=== PATIENT | male | born 1995 | race Caucasian/White ===

== ENCOUNTER 2019-01-17 18:45 | Emergency (ER) | payer BC ==
[~2019-01-17] VITALS: Ht 177.8 cm; Wt 90.7 kg
[2019-01-17 19:37] LABS: Source, Urine Clean Catch
[2019-01-17 19:42] LABS: BASOPHILS ABSOLUTE AUTO 0.05 K/mm3 (0.00-0.23); BASOPHILS PERCENT AUTO 1 % (0-2); EOSINOPHILS ABSOLUTE AUTO 0.08 K/mm3 (0.00-0.68); EOSINOPHILS PERCENT AUTO 1 % (0-6); Hematocrit 46.7 % (37.0-53.0); Hemoglobin 16.5 g/dL (13.5-17.5); IMMATURE GRAN ABSOLUTE AUTO 0.09 K/mm3 (0.00-0.10); IMMATURE GRAN PERCENT AUTO 1 % (0-1); LYMPHOCYTES PERCENT AUTO 19 % (21-46); MONOCYTES ABSOLUTE AUTO 0.52 K/mm3 (0.16-1.47); MONOCYTES PERCENT AUTO 6 % (4-13); Mean Corpuscular HGB Conc 35.3 g/dL (31.5-36.5); Mean Corpuscular Volume 88 fL (80-100); Mean Platelet Volume 11.1 fL (9.1-12.4); NEUTROPHILS ABSOLUTE AUTO 6.31 K/mm3 (1.96-9.15); NEUTROPHILS PERCENT AUTO 72 % (41-73); Platelet Count 209 K/mm3 (150-400); RDW Coefficient Variation 11.9 % (11.7-14.2); RDW Standard Deviation 37.6 fL (35.1-46.3); Red Blood Cell Count 5.33 M/mm3 (4.30-5.90); White Blood Cell Count 8.75 K/mm3 (4.00-11.30)
[2019-01-17 20:17] LABS: Bilirubin, Urine Neg (Neg); Blood, Urine 1+ (Neg); Glucose Qualitative, Urine Neg (Neg); Ketones, Urine Neg (Neg); Leukocyte Esterase, Urine Neg (Neg); Nitrite, Urine Neg (Neg); Protein, Urine Neg (Neg); Urobilinogen, Urine NORM (Normal)
[2019-01-17 20:35] LABS: Beta-hydroxybutyrate 2.2 mg/dL (0.2-2.8)
[2019-01-17 20:44] LABS: Appearance, Urine Clear (Clear); Color, Urine Pale Yellow (P-Yellow)
[2019-01-17 20:45] LABS: Bacteria Rare /hpf; Red Blood Cells, Urine 0-2 /hpf (0-2); Squamous Epithelial Cells Rare /hpf (Few); White Blood Cells, Urine Not Seen /hpf (0-5)
[2019-01-17 21:07] LABS: Alanine Aminotransfer (ALT/SGP 45 U/L (12-78); Albumin/Globulin Ratio 1.2 (0.8-1.8); Alk Phos 153 U/L (50-136); Anion Gap 7 mmol/L (6-16); Aspartate Aminotrans (AST/SGOT 16 U/L (12-37); Bilirubin, Total 0.3 mg/dL (0.1-1.0); Blood Urea Nitrogen 13 mg/dL (8-24); Bun/Creatinine Ratio 13.3 (12.0-20.0); CO2, Blood 27 mmol/L (21-32); Chloride, Blood 93 mmol/L (98-108); Creatinine, Blood 0.98 mg/dL (0.60-1.20); Globulin, Blood 3.3 g/dL (2.2-4.0); Glomerular Filtration Rate >60 (60-); Glucose, Blood 722 mg/dL (70-99); Sodium, Blood 127 mmol/L (136-145); Total Protein, Blood 7.3 g/dL (6.4-8.2)
--- NOTE | 2019-01-18 19:13 | NUR ---
Follow up call to this patient. He did not answer the phone and the mailbox is full, so I tried SO, Isidra. Pt high risk for readmission since he has discharged from the ER with a new, very serious diagnosis of diabetes. diagnosed pt with type 1. He has no PCP. Message left for Isidra to return call to report how pt is doing. Report left for Palliative Nursing to follow up with another call if possible.
== END 2019-01-17 23:20 | disposition home or self-care (01) ==
LOC: ER 18:45
PROVIDERS: Physician Assistant
DX: E11.9 Type 2 diabetes mellitus without complications (principal); R63.4 Abnormal weight loss; F17.200 Nicotine dependence, unspecified, uncomplicated; Z68.29 Body mass index [BMI] 29.0-29.9, adult
CPT/HCPCS: 36415; 71046; 80053; 81001; 82010; 82947; 85025; 93005; 93010; 96360; 96361; 99285-25; J1815; J7030

== ENCOUNTER 2021-05-16 17:51 | Observation (INO) | payer BC ==
[~2021-05-16] VITALS: Ht 177.8 cm; Wt 77.1 kg
[2021-05-16 18:26] LABS: BASOPHILS ABSOLUTE AUTO 0.27 K/mm3 (0.00-0.23); BASOPHILS PERCENT AUTO 1 % (0-2); EOSINOPHILS ABSOLUTE AUTO 0.01 K/mm3 (0.00-0.68); EOSINOPHILS PERCENT AUTO 0 % (0-6); Hematocrit 53.5 % (37.0-53.0); Hemoglobin 17.4 g/dL (13.5-17.5); IMMATURE GRAN ABSOLUTE AUTO 1.05 K/mm3 (0.00-0.10); IMMATURE GRAN PERCENT AUTO 5 % (0-1); LYMPHOCYTES ABSOLUTE AUTO 1.48 K/mm3 (0.84-5.20); LYMPHOCYTES PERCENT AUTO 7 % (21-46); MONOCYTES ABSOLUTE AUTO 0.77 K/mm3 (0.16-1.47); MONOCYTES PERCENT AUTO 4 % (4-13); Mean Corpuscular HGB 31.6 pg (26.0-34.0); Mean Corpuscular HGB Conc 32.5 g/dL (31.5-36.5); Mean Corpuscular Volume 97 fL (80-100); Mean Platelet Volume 10.8 fL (9.1-12.4); NEUTROPHILS ABSOLUTE AUTO 18.12 K/mm3 (1.96-9.15); NEUTROPHILS PERCENT AUTO 84 % (41-73); Platelet Count 233 K/mm3 (150-400); RDW Coefficient Variation 12.4 % (11.7-14.2); RDW Standard Deviation 44.5 fL (35.1-46.3)
[2021-05-16 18:48] LABS: Anion Gap 30 mmol/L (6-16); Blood Urea Nitrogen 20 mg/dL (8-24); Bun/Creatinine Ratio 18.5 (12.0-20.0); CO2, Blood 5 mmol/L (21-32); Calcium, Blood 8.2 mg/dL (8.5-10.1); Chloride, Blood 98 mmol/L (98-108); Creatinine, Blood 1.08 mg/dL (0.60-1.20); Glomerular Filtration Rate >60 (60-); Glucose, Blood 515 mg/dL (70-99); Potassium, Blood 5.9 mmol/L (3.5-5.5); Sodium, Blood 133 mmol/L (136-145)
[2021-05-16] MEDS ORDERED: INSULIN LI100 UNIT/6 SQ (19:00)
[2021-05-16] MEDS ORDERED: BASAGLAR K100 UNIT/3 SC (19:00)
[2021-05-16 19:01] LABS: Source, Urine Voided
[2021-05-16] MEDS ORDERED: ADMELOG SO100 UNIT/2 SQ (19:01)
[2021-05-16 19:04] LABS: Appearance, Urine Clear (Clear); Bilirubin, Urine Neg (Neg); Blood, Urine 1+ (Neg); Color, Urine Yellow (P-Yellow); Glucose Qualitative, Urine 4+ (Neg); Ketones, Urine 4+ (Neg); Leukocyte Esterase, Urine Neg (Neg); Nitrite, Urine Neg (Neg); Protein, Urine 3+ (Neg); Specific Gravity, Urine 1.025 (1.003-1.022); Urobilinogen, Urine NORM (Normal)
[2021-05-16 19:14] LABS: Bacteria Few /hpf; Red Blood Cells, Urine 0-2 /hpf (0-2); Squamous Epithelial Cells Rare /hpf (Few); White Blood Cells, Urine Rare /hpf (0-5)
[2021-05-16 19:21] LABS: Base Excess Venous -27.8 mmol/L; Bicarbonate Venous 7.9 mmol/L (24.0-30.0); PCO2 Venous 19.2 mmHg (38-42); PO2 Venous 67.7 mmHg (38-42); pH Blood Venous 6.95 (7.34-7.37)
[2021-05-16 19:35] LABS: Glucose, Blood 482 mg/dL (70-99)
[2021-05-16 20:12] LABS: Alanine Aminotransfer (ALT/SGP 35 U/L (12-78); Albumin, Blood 4.3 g/dL (3.4-5.0); Albumin/Globulin Ratio 1.1 (0.8-1.8); Alk Phos 197 U/L (50-136); Aspartate Aminotrans (AST/SGOT 24 U/L (12-37); Bilirubin, Direct <0.1 mg/dL (0.0-0.3); Bilirubin, Indirect Unable to Calculate mg/dL (0.1-0.7); Bilirubin, Total 0.4 mg/dL (0.1-1.0); Total Protein, Blood 8.3 g/dL (6.4-8.2)
[2021-05-16 23:50] LABS: Anion Gap 20 mmol/L (6-16); Blood Urea Nitrogen 13 mg/dL (8-24); Bun/Creatinine Ratio 17.9 (12.0-20.0); CO2, Blood 8 mmol/L (21-32); Calcium, Blood 7.2 mg/dL (8.5-10.1); Chloride, Blood 106 mmol/L (98-108); Creatinine, Blood 0.73 mg/dL (0.60-1.20); Glomerular Filtration Rate >60 (60-); Glucose, Blood 195 mg/dL (70-99); Potassium, Blood 4.3 mmol/L (3.5-5.5); Sodium, Blood 134 mmol/L (136-145)
[2021-05-17 05:05] LABS: BASOPHILS ABSOLUTE AUTO 0.08 K/mm3 (0.00-0.23); BASOPHILS PERCENT AUTO 1 % (0-2); EOSINOPHILS PERCENT AUTO 0 % (0-6); Hematocrit 44.7 % (37.0-53.0); Hemoglobin 15.7 g/dL (13.5-17.5); IMMATURE GRAN ABSOLUTE AUTO 0.33 K/mm3 (0.00-0.10); IMMATURE GRAN PERCENT AUTO 2 % (0-1); LYMPHOCYTES ABSOLUTE AUTO 1.45 K/mm3 (0.84-5.20); LYMPHOCYTES PERCENT AUTO 10 % (21-46); MONOCYTES ABSOLUTE AUTO 1.03 K/mm3 (0.16-1.47); MONOCYTES PERCENT AUTO 7 % (4-13); Mean Corpuscular HGB 31.7 pg (26.0-34.0); Mean Corpuscular HGB Conc 35.1 g/dL (31.5-36.5); Mean Platelet Volume 10.2 fL (9.1-12.4); NEUTROPHILS PERCENT AUTO 80 % (41-73); Platelet Count 185 K/mm3 (150-400); RDW Coefficient Variation 12.2 % (11.7-14.2); RDW Standard Deviation 40.2 fL (35.1-46.3); Red Blood Cell Count 4.95 M/mm3 (4.30-5.90); White Blood Cell Count 14.29 K/mm3 (4.00-11.30)
[2021-05-17 05:07] LABS: Mean Corpuscular Volume 90 fL (80-100)
[2021-05-17 05:25] LABS: Alanine Aminotransfer (ALT/SGP 24 U/L (12-78); Albumin, Blood 3.6 g/dL (3.4-5.0); Albumin/Globulin Ratio 1.1 (0.8-1.8); Alk Phos 150 U/L (50-136); Anion Gap 13 mmol/L (6-16); Aspartate Aminotrans (AST/SGOT 15 U/L (12-37); Bilirubin, Total 0.7 mg/dL (0.1-1.0); Blood Urea Nitrogen 8 mg/dL (8-24); Bun/Creatinine Ratio 13.3 (12.0-20.0); CO2, Blood 16 mmol/L (21-32); Calcium, Blood 7.7 mg/dL (8.5-10.1); Chloride, Blood 106 mmol/L (98-108); Globulin, Blood 3.2 g/dL (2.2-4.0); Glomerular Filtration Rate >60 (60-); Glucose, Blood 204 mg/dL (70-99); Potassium, Blood 3.7 mmol/L (3.5-5.5); Sodium, Blood 135 mmol/L (136-145); Total Protein, Blood 6.8 g/dL (6.4-8.2)
--- NOTE | 2021-05-17 09:35 | NUR ---
PT TO ICU 1 FROM ED. TRANSFERRED TO ICU BED INDEPENDENTLY. INSULIN GTT @2 UNITS/HR AND D5 1/2 NS WITH BICARB @ 100 ML/HR. BLOOD SUGAR ON ARRIVAL 194. PT REPORTS THAT HE "WENT CAMPING THIS WEEKEND AND DIDN'T BRING HIS INSULIN". WHEN ASKED ABOUT HIS HOME INSULIN REGIMENT AND CHECKING BLOOD SUGAR PT STATES HE "DOESN'T TAKE THE LONG ACTING AT NIGHT AND WILL CHECK HIS BLOOD SUGAR AFTER EATING AND THEN TAKE INSULIN". PT DENIES NAUSEA/VOMITING OR PAIN AT THIS TIME. VSS. SEE ADMISSION ASSESSMENT.
[2021-05-17 10:19] LABS: Anion Gap 12 mmol/L (6-16); Blood Urea Nitrogen 8 mg/dL (8-24); Bun/Creatinine Ratio 14.4 (12.0-20.0); CO2, Blood 20 mmol/L (21-32); Calcium, Blood 8.4 mg/dL (8.5-10.1); Chloride, Blood 105 mmol/L (98-108); Creatinine, Blood 0.56 mg/dL (0.60-1.20); Glomerular Filtration Rate >60 (60-); Glucose, Blood 197 mg/dL (70-99); Potassium, Blood 3.4 mmol/L (3.5-5.5); Sodium, Blood 137 mmol/L (136-145)
--- NOTE | 2021-05-17 12:33 | NUR ---
PT GIVEN SEMGLEE 10 UNITS AND 4 UNITS HUMALOG, INSULIN GTT AND D5 1/2NS TURNED OFF. PT SITTING UP IN BED EATING LUNCH. PT EXPRESSES WISH TO GO HOME SOON POSSIBLE D/T HAVING TO WORK TOMORROW. PT'S MOTHER AND SIGNIFICANT OTHER UPDATED ON PT'S STATUS AND PLAN OF CARE.
[2021-05-17] MEDS ORDERED: INSULANI (15:23)
[2021-05-17] MEDS ORDERED: HUMALOG KW100 UNIT/1 SC (15:25)
--- NOTE | 2021-05-17 15:51 | NUR ---
PT DISCHARGED HOME WITH SIGNIFICANT OTHER. REVIEWED REFERRAL TO [facility] HELPER DR. LAYNE, OFFICE CLOSED D/T HOLIDAY. HIGHLIGHTED DR. LAYNE'S CONTACT INFORMATION, PT TO CALL TOMORROW TO SCHEDULE APPT. SEMGLEE AND [facility] PRESCRIPTIONS CALLED INTO [facility], MESSAGE LEFT D/T HOLIDAY. PT AND SIGNIFICANT OTHER ENCOURAGED TO CALL ICU TOMORROW IF THEY ARE UNABLE TO VP RESPIRATORY PRESCRIPTIONS SO THAT WE CAN FAX INFORMATION OVER NEEDED. PT STATES THAT HE HAS "MORE THAN ENOUGH INSULIN" TO GET HIM THROUGH UNTIL TOMORROW. REVIEWED DKA AND CARB COUNTING EDUCATION. IV'S REMOVED AND PT WALKED INDEPENDENTLY OUT OF UNIT WITH SIGNIFICANT OTHER.
[2021-06-08] MEDS ORDERED: INSULANPEN SC (11:35)
[2021-06-08] MEDS ORDERED: FAMO20 PO (11:36)
[2021-06-08] MEDS ORDERED: Acetaminophen325 M1 PO (11:36)
[2021-06-08] MEDS ORDERED: ONDA4ODT MM (11:37)
[2021-06-08] MEDS ORDERED: K-Phos Origina500 MG PO (11:37)
[2021-06-08] MEDS ORDERED: Lisinopril2.5 MG PO (11:37)
== END 2021-05-17 15:50 | disposition home or self-care (01) ==
LOC: ER 17:51 → ERHOLD 20:33 → ICUE 23:31 → ERHOLD 23:31 → ICUE 05-17 07:36
PROVIDERS: Emergency Medicine; ADMIT Internal Medicine
DX: E10.10 Type 1 diabetes mellitus with ketoacidosis without coma (principal); E86.0 Dehydration; F17.210 Nicotine dependence, cigarettes, uncomplicated; F15.11 Other stimulant abuse, in remission; Z91.14 Patient's other noncompliance with medication regimen
CPT/HCPCS: 36415; 74176; 80048; 80053; 80076; 81001; 82010; 82803; 82947; 83690; 85025; 96374; 96375; 99291-25; A9270; G0378; J1815; J1885; J2405; J3010; J7030; J7042; J7070

== ENCOUNTER 2022-01-05 05:42 | Inpatient (IN) | payer OTHER ==
[~2022-01-05] VITALS: Ht 180.3 cm; Wt 70.9 kg
[~2022-01-05 05:42] MED LIST: ADMELOG SO100 UNIT/2 SQ; Acetaminophen325 M1 PO; BASAGLAR K100 UNIT/3 SC; FAMO20 PO; HUMALOG KW100 UNIT/1 SC; INSULANI; INSULANPEN SC; INSULIN LI100 UNIT/6 SQ; K-Phos Origina500 MG PO; Lisinopril2.5 MG PO; ONDA4ODT MM
[2022-01-05 05:55] LABS: Calcium, Ionized (POC) 1.28 mmol/L (1.10-1.46); Chloride (POC) 101 mmol/L (98-108); Creatinine (POC) 1.1 mg/dL (0.8-1.3); Glucose (ISTAT POC) 428 mg/dL (70-99); Hemoglobin (POC) 20.1 g/dL (13.5-17.5); Potassium (POC) 4.8 mmol/L (3.5-5.5); Sodium (POC) 132 mmol/L (135-148); Total CO2 (POC) 8 mmol/L (21-32)
[2022-01-05 06:00] LABS: Hemoglobin 18.7 g/dL (13.5-17.5); Mean Corpuscular HGB 31.6 pg (26.0-34.0); Mean Corpuscular HGB Conc 33.5 g/dL (31.5-36.5); Mean Corpuscular Volume 94 fL (80-100); Mean Platelet Volume 10.4 fL (9.1-12.4); Platelet Count 316 K/mm3 (150-400); RDW Coefficient Variation 11.6 % (11.7-14.2); RDW Standard Deviation 40.3 fL (35.1-46.3); Red Blood Cell Count 5.91 M/mm3 (4.30-5.90); White Blood Cell Count 22.64 K/mm3 (4.00-11.30)
[2022-01-05 06:00] LABS: Base Excess Venous -27.2 mmol/L; Bicarbonate Venous 8.5 mmol/L (24.0-30.0); PCO2 Venous 20.9 mmHg (38-42); PO2 Venous 73.2 mmHg (38-42); pH Blood Venous 6.96 (7.34-7.37)
[2022-01-05 06:03] LABS: Hematocrit 55.8 % (37.0-53.0)
[2022-01-05 06:21] LABS: BAND PERCENT MAN 16 % (0-8); BASOPHILS PERCENT MAN 0 % (0-2); EOSINOPHILS PERCENT MAN 0 % (0-6); LYMPHOCYTES ABSOLUTE MAN 1.13 K/mm3 (0.84-5.20); LYMPHOCYTES PERCENT MAN 5 % (21-46); METAMYELOCYTE ABSOLUTE MAN 0.22 K/mm3 (0.00-0.00); METAMYELOCYTE PERCENT MAN 1 % (0-0); MONOCYTES ABSOLUTE MAN 0.67 K/mm3 (0.16-1.47); MONOCYTES PERCENT MAN 3 % (4-13); SEG NEUTROPHILS PERCENT MAN 75 % (41-73); TOTAL CELLS COUNTED 100
[2022-01-05 06:26] LABS: Alanine Aminotransfer (ALT/SGP 29 U/L (12-78); Albumin, Blood 4.5 g/dL (3.4-5.0); Albumin/Globulin Ratio 1.3 (0.8-1.8); Alk Phos 193 U/L (50-136); Anion Gap 30 mmol/L (6-16); Aspartate Aminotrans (AST/SGOT 24 U/L (12-37); Bilirubin, Total 0.6 mg/dL (0.1-1.0); Blood Urea Nitrogen 20 mg/dL (8-24); Bun/Creatinine Ratio 19.6 (12.0-20.0); CO2, Blood 5 mmol/L (21-32); Calcium, Blood 8.1 mg/dL (8.5-10.1); Chloride, Blood 96 mmol/L (98-108); Creatinine, Blood 1.02 mg/dL (0.60-1.20); Globulin, Blood 3.5 g/dL (2.2-4.0); Glomerular Filtration Rate >60 (60-); Glucose, Blood 434 mg/dL (70-99); Potassium, Blood 4.8 mmol/L (3.5-5.5); Sodium, Blood 131 mmol/L (136-145)
[2022-01-05 06:44] LABS: Source, Urine Clean Catch
[2022-01-05 06:47] LABS: Appearance, Urine Clear (Clear); Bilirubin, Urine Neg (Neg); Blood, Urine 1+ (Neg); Color, Urine Yellow (P-Yellow); Glucose Qualitative, Urine 4+ (Neg); Ketones, Urine 4+ (Neg); Leukocyte Esterase, Urine Neg (Neg); Nitrite, Urine Neg (Neg); Protein, Urine 2+ (Neg); Specific Gravity, Urine 1.025 (1.003-1.022); Urobilinogen, Urine NORM (Normal)
[2022-01-05 07:08] LABS: U Amphetamine Screen Not Detected; U Barbituate Screen Not Detected; U Benzodiazapine Screen Not Detected; U Buprenorphine Screen Not Detected; U Cannabinoids Screen Not Detected; U Cocaine Screen Not Detected; U Methadone Screen Not Detected; U Methamphetamine Screen Not Detected; U Opiates Screen Not Detected; U Oxycodone Screen Not Detected; U Phencyclidine Screen Not Detected; U Propoxyphene Screen Not Detected
[2022-01-05 07:13] LABS: Hyaline Casts 0-2 /lpf (0-2)
[2022-01-05 07:14] LABS: Bacteria Rare /hpf; Red Blood Cells, Urine 0-2 /hpf (0-2); Squamous Epithelial Cells Not Seen /hpf (Few); White Blood Cells, Urine 0-2 /hpf (0-5)
[2022-01-05 08:22] LABS: Potassium, Blood 4.4 mmol/L (3.5-5.5)
--- NOTE | 2022-01-05 11:14 | NUR ---
PT ARRIVAL TO UNIT.... PT ARRIVED ON UNIT VIA GURNEY AND WAS ABLE TO SELF TRANSFER TO THE BED. UPON ARRIVAL THE PT'S INSULIN DRIP WAS SET TO 4 UNITS/HR. HE WAS ALSO ON D5 W/ 1/2 NS RUNNING AT 100MLS/HR. THE PT WAS IN SINUS TACH IN THE LOW 100'S, HIS BP STABLE. THE PT DENIED ANY CHEST PAIN/PRESSURE N/V OR SOB. NO EDEMA NOTED NOTED ON ASSESSMENT. THE PT DENIED ANY NUMBNESS/TINGLING. THE PT'S IS AT THE BEDSIDE. CALL LIGHT IN REACH WILL CONTINUE TO MONITOR.
[2022-01-05 15:35] LABS: Potassium, Blood 4.1 mmol/L (3.5-5.5)
--- NOTE | 2022-01-05 17:33 | NUR ---
SHIFT SUMMARY.... NO ACUTE NEGATIVE CHANGES NOTED THIS SHIFT. THE PT'S VS HAVE BEEN STABLE. THE PT DENIES ANY N/V SINCE ARRIVAL TO THE UNIT. THE PT IS ON AN INUSLIN DRIP AT 2UNITS/HR LAST CBG WAS 166. THE PT IS C/O OF BEING HUNGRY AND AN ADA TRAY WAS ORDERED PER PROVIDER. THE PT'S IS AT THE BEDSIDE MOST OF THIS SHIFT BOTH PT AND HIS WERE UPDATED AND EDUCATED ON HIS CURRENT CONDITON, PLAN OF CARE AND CARE ONCE HE IS D/C'd HOME. BOTH VERBALIZED THEIR UNDERSTANDING. THE PT HAS NOT VOIDED SINCE ARRIVAL TO THE UNIT AND CURRENTLY DENIES THE NEED. CALL LIGHT IN REACH WILL CONTINUE TO MONITOR UNTIL REPORT IS GIVEN TO ONCOMING RN.
[2022-01-05 19:02] LABS: Potassium, Blood 3.5 mmol/L (3.5-5.5)
--- NOTE | 2022-01-05 19:11 | NUR ---
ASSESSMENT/ASSUMED CARE PT SLEEPING, AWAKENS TO VERBAL STIMULI. BLOOD GLUCOSE 339, INCREASED INSULIN GTT TO 4 UNITS/HR WITH D5 1/2 AT 100 ML/HR. PT DENIES PAIN OR DISCOMFORT. MOVING AND TURNING SELF IN BED. TALKED WITH PT ABOUT CO2 AT 15 AND WOULD NEED TO STAY ON INSULIN GTT UNTIL CO2 GREATER THAN 20. PT EXPRESSED UNDERSTANDING. LUNGS CLEAR ON ROOMAIR. RESP EVEN AND NONLABORED. NONPRODUCTIVE COUGH NOTED. HEART RATE SINUS TACH IN THE 100'S. BP STABLE. NO EDEMA. DENIES CHEST PAIN OR PRESSURE. SKIN WARM AND INTACT. BT+ ABD SOFT AND NONTENDER, DENIES N/V. IV 20G TO LEFT AC WITH FLUIDS INFUSING SITE CLEAR. IV 18G TO RIGHT AC SALINE LOCKED, FLUSHED WITHOUT DIFFICULTY. SITE CLEAR. PT UP STANDING AT EDGE OF THE BED TO VOID.
[2022-01-05 23:14] LABS: Potassium, Blood 3.5 mmol/L (3.5-5.5)
--- NOTE | 2022-01-06 00:05 | NUR ---
REASSESSMENT PT SLEEPING, AWAKENS EASILY TO VERBAL STIMULI. BLOOD GLUCOSE DOWN TO 225, CONT INSULIN GTT AT 2 UNITS/HR. HEART RATE DOWN TO 80-90'S. BP STABLE. CO2 AT 2300 UP TO 17. CONT INSULIN GTT. PT BACK TO SLEEP QUICKLY.
[2022-01-06 03:06] LABS: BASOPHILS ABSOLUTE AUTO 0.04 K/mm3 (0.00-0.23); BASOPHILS PERCENT AUTO 1 % (0-2); EOSINOPHILS ABSOLUTE AUTO 0.08 K/mm3 (0.00-0.68); EOSINOPHILS PERCENT AUTO 1 % (0-6); Hematocrit 45.4 % (37.0-53.0); Hemoglobin 16.1 g/dL (13.5-17.5); IMMATURE GRAN ABSOLUTE AUTO 0.07 K/mm3 (0.00-0.10); IMMATURE GRAN PERCENT AUTO 1 % (0-1); LYMPHOCYTES ABSOLUTE AUTO 1.78 K/mm3 (0.84-5.20); LYMPHOCYTES PERCENT AUTO 21 % (21-46); MONOCYTES ABSOLUTE AUTO 0.81 K/mm3 (0.16-1.47); MONOCYTES PERCENT AUTO 10 % (4-13); Mean Corpuscular HGB 31.4 pg (26.0-34.0); Mean Corpuscular HGB Conc 35.5 g/dL (31.5-36.5); Mean Platelet Volume 9.7 fL (9.1-12.4); NEUTROPHILS ABSOLUTE AUTO 5.71 K/mm3 (1.96-9.15); NEUTROPHILS PERCENT AUTO 67 % (41-73); Platelet Count 166 K/mm3 (150-400); RDW Coefficient Variation 11.8 % (11.7-14.2); RDW Standard Deviation 38.2 fL (35.1-46.3); Red Blood Cell Count 5.13 M/mm3 (4.30-5.90); White Blood Cell Count 8.49 K/mm3 (4.00-11.30)
[2022-01-06 03:23] LABS: Anion Gap 9 mmol/L (6-16); Blood Urea Nitrogen 11 mg/dL (8-24); Bun/Creatinine Ratio 23.1 (12.0-20.0); CO2, Blood 19 mmol/L (21-32); Calcium, Blood 8.1 mg/dL (8.5-10.1); Chloride, Blood 107 mmol/L (98-108); Creatinine, Blood 0.48 mg/dL (0.60-1.20); Glomerular Filtration Rate >60 (60-); Glucose, Blood 245 mg/dL (70-99); Potassium, Blood 3.4 mmol/L (3.5-5.5); Sodium, Blood 135 mmol/L (136-145)
[2022-01-06 03:41] LABS: Mean Corpuscular Volume 89 fL (80-100)
--- NOTE | 2022-01-06 04:00 | NUR ---
REASSESSMENT PT SLEEPING, AWAKENS EASILY. MED WITH POTASSIUM CHL 40 MEQ PO FOR K OF 3.4. PT TOOK WITHOUT DIFFICULTY. BLOOD GLUCOSE 191, CONT INSULIN AT 2 UNITS/HR. BACK TO SLEEP QUICKLY.
--- NOTE | 2022-01-06 06:01 | NUR ---
SHIFT SUMMARY PT RESTING QUIETLY. AWAKENS EASILY TO VERBAL STIMULI. DENIES PAIN OR DISCOMFORT. TURNING AND MOVING SELF IN BED. VSS. HEART RATE DOWN FROM 100'S INTO THE 80-90'S DURING THE NIGHT. CONT ON INSULIN GTT DURING THE NIGHT DUE TO CO2 CONT UNDER 20. LAST CO2 WAS AT 19. REPEAT LABS AT 0700. LAST BLOOD GLUCOSE 251, INCREASED INSULIN GTT TO 2 UNITS/HR. PT MED WITH PO POTASSIUM THIS AM. POSSIBLE OFF INSULIN GTT AFTER NEXT LABS, AND DC TO HOME THIS AFTERNOON. REPORT TO ON COMING NURSE.
[2022-01-06 07:14] LABS: Potassium, Blood 3.6 mmol/L (3.5-5.5)
--- NOTE | 2022-01-06 08:30 | NUR ---
ASSUME CARE: I assumed care of this patient at 0700.
[2022-01-06 14:34] LABS: Potassium, Blood 3.5 mmol/L (3.5-5.5)
--- NOTE | 2022-01-06 14:47 | NUR ---
UPDATE: Dr Vasquez called and updated on pt's lab results. Plans to discharge patient at 1600 once PK system back online. Monitoring equipment removed per patient request.
--- NOTE | 2022-01-06 16:53 | NUR ---
DISCHARGE: Pt was discharged home with his significant other present to give him a ride. He was provided discharge teaching and return precautions. Pt and SO verbalized understanding and agreement. Pt was encouraged to follow up with his PCP and discuss possible implanted glucometer device. Pt ambulated out of hospital; he declined wheelchair escort out of hospital.
== END 2022-01-06 16:53 | disposition home or self-care (01) | DRG 308 ==
LOC: ER 05:42 → ICUW 07:48 → ICUE 09:25
PROVIDERS: Emergency Medicine; Internal Medicine; ADMIT Internal Medicine
DX: I48.0 Paroxysmal atrial fibrillation (principal); E10.10 Type 1 diabetes mellitus with ketoacidosis without coma; E87.1 Hypo-osmolality and hyponatremia; Z79.4 Long term (current) use of insulin; F17.200 Nicotine dependence, unspecified, uncomplicated; F15.10 Other stimulant abuse, uncomplicated
CPT/HCPCS: 36415; 80047; 80048; 80051; 80053; 81001; 82803; 82947; 85014; 85025; 93005; 93010; 96374; 99285-25; A9270; J1815; J7030; J7042